=== PATIENT | male | born 1965 | race Caucasian/White ===

== ENCOUNTER → 2020-07-21 11:53 | Outpatient (BNVA) | payer OTHER, SELFPAY | PROVIDERS: PCP Physician Assistant; Referring Provider Physician Assistant; Visit Provider Physician Assistant | DX: M17.12 Unilateral primary osteoarthritis, left knee (principal) | CPT/HCPCS: 99213 ==

== ENCOUNTER → 2020-08-09 14:38 | Outpatient (BNVA) | payer OTHER, SELFPAY | PROVIDERS: PCP Physician Assistant; Referring Provider Physician Assistant; Visit Provider Physician Assistant | DX: M75.21 Bicipital tendinitis, right shoulder (principal) | CPT/HCPCS: 99203 ==

== ENCOUNTER → 2020-09-27 15:39 | Outpatient (BNVA) | payer OTHER, SELFPAY | PROVIDERS: PCP Physician Assistant; Visit Provider Student in an Organized Health Care Education/Training Program | DX: Z76.89 Persons encountering health services in other specified circumstances (principal) ==

== ENCOUNTER → 2021-12-14 14:09 | Outpatient (RCR) | payer OTHER, SELFPAY ==
--- NOTE | 2020-08-22 17:05 | MHC.PT.EP ---
[facility] [place] Office [place] [facility] [place] Office [address] Bhaskar Pereira [address] [phone] F: [phone] F: [phone] F: [phone] F: [phone] Physical Therapy Plan of Care Date of Evaluation: 08/22/20 Date of Surgery: Diagnosis: Unilateral primary OA, left knee Bicipital tendinitis, right shoulder Assessment: Pt is a 54 y/o male referred to skilled PT for unilateral primary OA, left knee and bicipital tendinitis, right shoulder. Assessment of the shoulder reveals mild decreased strength, impaired ER/IR ROM, decreased RTC and periscapular strength, impaired posture, mild tenderness to palpation, and increased tissue tension. Resisted tests of the right shoulder are all strong and pain free. Due to his shoulder pain, he is having difficulty sleeping, bathing, carrying/lifting heavy objects, and reaching into his back pocket to retrieve his wallet. Assessment of the left knee reveals mild genu varus deformity, pain, decreased strength, feeling of instability, mild impaired hip ROM, and impaired muscle length. Due to his knee pain, Pt has difficulty with: kneeling, squatting, walking, standing, transitioning from sitting to standing, and ascending/descending stairs. Pt will benefit from skilled PT services 1x/week for 10 weeks in order to reduce impairments, improve functional limitations, and implement a comprehensive HEP. Frequency and Duration: The patient will be seen 1x/week for 10 weeks, minimum of 38 minutes Short Term Goals: -In 3 weeks, Pt to report less than 7/10 knee and shoulder pain. -In 5 weeks, Pt to restore right shoulder ROM to WNL in all directions. [employer] Goals: -In 8 weeks, Pt to demonstrate ability to ascend/descend stairs in a reciprocal pattern w/ less than 3/10 pain. -In 10 weeks, Pt to improve LEFI and SPADI by at least 13 points each. Treatment Plan: Modalities to reduce pain, spasms and effusion. Manual therapy to restore motion and function. Therapeutic exercise to improve strength and flexibility. Neuromuscular re-education for posture and balance. Therapeutic activities to return to functional activities of daily living. Please sign and return to therapist. Thank you for your referral.
--- NOTE | 2020-12-16 14:45 | MHC.PT.DC ---
[facility] [place] Office [place] Office [place] Office [address] Bhaskar Pereira [address] [phone] F: [phone] F: [phone] F: [phone] F: [phone] Physical Therapy Discharge Report Diagnosis: Unilateral primary OA, left knee Bicipital tendinitis, right shoulder Date of Surgery: Date of Evaluation: 08/22/20 Date of Discharge: 10/14/21 Treatments to Date: 9 Cancellations to Date: 1 No Shows to Date: Discharge Status: Improved Function Discharge Summary: Pt was primarily being treated for his right shoulder pain and progressing well. He demonstrated most pain and limited ROM into shoulder internal rotation. Otherwise, he reported pain mostly at night. He was seen for 9 visits and then cancelled his last visit. D/C to HEP @ this time. Electronically signed by: Madelyn Tidwell PT, DPT Please sign and return to therapist. Thank you for your referral.
== END | disposition home or self-care (01) ==
LOC: HO.PT 08-22 15:34
PROVIDERS: Visit Provider Physician Assistant
DX: M17.12 Unilateral primary osteoarthritis, left knee (principal)
CPT/HCPCS: 97033; 97110; 97140; 97161